=== PATIENT | male | born 2000 | race Caucasian/White ===

== ENCOUNTER 2020-10-02 00:05 | Emergency (ER) | payer BC, SELFPAY ==
[2020-10-02 00:13] VITALS: BP 111/70; PULSE 99; RESP 18; TEMP 36.6; O2SAT 96; BMI 25.1
--- NOTE | 2020-10-02 01:08 | ED_ITS ---
HPI - Psych General: Chief Complaint: Psychiatric Symptoms Stated Complaint: mhe Time Seen by Provider: 10/02/20 00:12 Source: patient Mode of arrival: ambulatory Limitations: no limitations History of Present Illness: HPI Narrative: PAtient reports onset of severe panic attacks today - states has not ate or had intake of PO fluids in 24 hours due to severe anixety and nausea, he reports became scared tonight which prompted his visit to the ED, states thoughts were strong and became overwhelmed and stressed. He states is not able to focus, he reports history of need for psychiatric medication 2 years ago, is currently not taking any medication. He denies suicidal/homicidal ideations plans or thoughts. He reports inability to sleep due to persistent thoughts of events that occurred in the past. He reports cannot turn his mind off. He is requesting admission to the stress unit to help with anxiety. He states he is scared to be alone. He lives here in [place], he lives with his mother and sister. 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 He is not willing to discuss what events occurred in the past, I'm trying to s top thinking about it . complaint: other (severe anxiety) Onset (ago): day(s) (2) Duration: constant History of same: Yes Relieving factors: therapy Exacerbating factors: other (thoughts) Context: significant life stressor Associated psychiatric symptoms: racing thoughts Associated symptoms: Reports racing thoughts; Deny auditory hallucinations, visual hallucinations, depression, homicidal ideation or suicidal ideation Treatments prior to arrival: none Review of Systems General: Reports: 10 or more systems reviewed and unremarkable except in HPI and below Const: Denies: fever(s), chills or diaphoresis Eyes: Denies: blurry vision or eye redness ENMT: Denies: throat pain, dental pain or disequilibrium Card: Reports: palpitations; Denies: chest pain, irregular heart rhythm, swelling of feet/ankles, dyspnea on exertion or orthopnea Resp: Denies: dyspnea, productive cough, non-productive cough, wheezing or chest congestion GI: Denies: abdominal pain, nausea or vomiting : Denies: difficulty urinating, dysuria, urinary hesitancy or hematuria Musc: Reports: joint pain (chronic rt knee pain, cyst ); Denies: neck pain, back pain, muscle cramps or muscle weakness Skin/Breast: Denies: rash, pruritus, erythema, skin tenderness, changing lesions or changes in skin color Neuro: Reports: difficulty communicating thoughts; Denies: headache(s), weakness in extremities, lack of coordination, dizziness, confusion, behavioral changes or Slurred speech present Psych: Reports: anxiety, panic attacks, sleeping less, loss of interest, change in appetite and difficulty concentrating; Denies: depression, visual hallucinations, auditory hallucinations, suicidal i deation or homicidal ideation Joe/Lymph: Denies: easy bruising PFSH ED PFSH: Medical History Anxiety Panic attack Social History (Updated 10/02/20 @ 01:19 by ELVIRA Denny) Household members: other Housing: House Marital status: Single Physical Exam Const: COMMON NORMALS: no acute distress, patient oriented x3, healthy appearing, alert and well nourished GENERAL APPEARANCE: cooperative, comfortable, well kempt, well developed, anxious and well hydrated NUTRITIONAL APPEARANCE: thin ORIENTATION/CONSCIOUSNESS: Yes awake, Yes oriented to person, Yes oriented to place and Yes oriented to time HENMT: COMMON NORMALS: normocephalic, atraumatic, EAC's normal, Normal external nose present and moist oral mucous membranes HEAD & SCALP: normal to inspection, normocephalic and atraumatic FACE & SINUS: normal facial exam and face symmetric NOSE: Normal external nose present EXTERNAL AUDITORY CANAL: EAC's normal MOUTH: Normal oral and palatal mucosa present THROAT: posterior oropharynx normal Eye: COMMON NORMALS: Equal, round and reactive pupils present, EOMs intact bilaterally and conjunctivae normal GENERAL EYE: appearance normal, both eyes and all related structures ALIGNMENT: Yes alignment normal EYELID: eyelids normal CONJUNCTIVA: Yes conjunctivae normal PUPIL: Yes Equal, round and reactive pupils present Neck/C-Spine: COMMON NORMALS: full ROM, no lymphadenopathy and supple GENERAL: Yes normal visual inspection and Yes trachea midline CERVICAL SPINE: Yes cervical ROM normal Lymph: LYMPHATIC: no lymphadenopathy noted Chest: COMMONS NORMALS: normal inspection of the chest and normal palpation of entire chest wall Resp: COMMON NORMALS: normal respiratory effort, No retractions, No use of accessory muscles and clear to auscultation bilaterally EFFORT & INSPECTION: Yes able to speak in complete sentences, No labored and No audible wheezes AUSCULTATION: clear to auscultation bilaterally and no wheezes Cardio: COMMON NORMALS: regular rate, regular rhythm, S1 normal heart sound present, S2 normal heart sound present and Peripheral pulses 2+ throughout RATE: regular rate RHYTHM: regular rhythm HEART SOUNDS: S1 normal heart sound present and S2 normal heart sound present PERIPHERAL PULSES: Peripheral pulses 2+ throughout GI: COMMON NORMALS: Normal to inspection, nondistended, normoactive bowel sounds present, Soft to palpation and non-tender INSPECTION: Yes normal to inspection, No abdominal wall ecchymosis, No abdominal distension and No central obesity PALPATION: Yes Soft to palpation : COMMON NORMALS: Yes no CVA tenderness BLADDER/KIDNEY EXAM: Yes no CVA tenderness Back/Pelvis: COMMON NORMALS: no CVA tenderness, thoracic and lumbar spine normal to inspection, no thoracic nor lumbar tenderness, thoraco-lumbar ROM normal and straight leg raise negative bilaterally Extremity: COMMON NORMALS: normal to inspection and capillary refill normal Neuro: COMMON NORMALS: patient oriented x3 and no focal motor deficits SENSORIUM/ORIENTATION: Yes alert, Yes oriented to person, Yes oriented to place and Yes oriented to time SPEECH: speech normal MOTOR EXAM: 5/5 motor strength present throughout Psych: COMMON NORMALS: mental status grossly normal, cooperative, speech normal, denies hallucinations, denies homicidal ideation and denies suicidal ideation APPEARANCE: Yes grossly normal and Yes well kempt ATTITUDE: Yes calm ACTIVITY/MOTOR BEHAVIOR: Yes appropriate eye contact SPEECH: Yes normal speech MOOD & AFFECT: Yes anxious THOUGHT PROCESS: Circumstantial thought process present ATTENTION/CONCENTRATION: Yes attention grossly intact MEMORY/COGNITION: Yes memory grossly intact INSIGHT: Good insight present (Psych) JUDGEMENT: Good judgement present (Psych) Skin: COMMON NORMALS: no rashes or lesions noted and turgor normal GENERAL SKIN EXAM: no rashes or lesions noted and turgor normal MDM - Psych MDM Narrative: Medical decision making narrative: 20-year-old male patient presents to the emergency department with panic attacks and severe anxiety. He was not suicidal/homicidal nor does he have previous history of psychiatric admission for such. He was prescribed Ativan for anxiety, received 1 L of normal saline as he had not ate or drank in 24 hours due to severe anxiety. He reports Ativan was effective with improving anxiety, request to be admitted to inpatient stress unit -he did not meet criteria for admission as he was not suicidal/homicidal. Plan is to prescribe anxiolytics with SSRI and consult case management for primary care/behavioral health appointment. He agrees with plan and agrees with follow-up. He was advised to return to the emergency department if he developed suicidal/homicidal ideation thoughts or plans. Urine drug screen negative, remaining serology testing without acute abnormalities. Lab Data: Labs: Lab Results 10/02/20 10/02/20 10/02/20 Range/Units 01:16 01:16 01:26 WBC 6.0 (4.0-10.0) 10^3/ uL RBC 5.28 (4.1-5.3) 10^6/u L Hgb 15.5 (11.7-16.6) g/dL Hct 48.3 (42.0-52.0) % MCV 91.5 (80-94) fL MCH 29.4 (28.0-34.0) pg MCHC 32.1 (30.0-36.0) g/dL RDW 13.2 (12.1-15.1) % Plt Count 242 (130-400) 10^3/c mm MPV 10.5 H (7.4-10.4) fL Neut % (Auto) 65.5 % Lymph % (Auto) 26.0 % [place] % (Auto) 7.2 % Eos % (Auto) 0.3 % Baso % (Auto) 0.7 % Neut # (Auto) 3.94 (1.8-7.7) 10^3/u L Lymph # (Auto) 1.6 (0.8-4.8) 10^3/u L [place] # (Auto) 0.4 (0.2-0.9) 10^3/u L Eos # (Auto) 0.0 (0.0-0.8) 10^3/u L Baso # (Auto) 0.0 (0.0-0.1) 10^3/u L Nucleated RBC % (a uto) 0 % Nucleated RBCs # 0.0 /100WBC Sodium (136-145) mmol/L Potassium (3.5-5.1) mmol/L Chloride (98-107) mmol/L Carbon Dioxide (22-29) mmol/L Anion Gap (5-19) BUN (6-20) mg/dL Creatinine (0.7-1.2) mg/dL GFR Calculation (90-130) mL/min Glucose (65-115) mg/dL Calculated Osmolal ity (285-295) mOsm/k g Calcium (8.5-10.5) mg/dL Total Bilirubin (0.15-1.2) mg/dL AST (0-40) U/L ALT (0-41) U/L Alkaline Phosphata se (40-130) IU/L Total Protein (6.6-8.7) g/dL Albumin (3.5-5.2) g/dL Globulin (1.3-4.6) g/dL Lipase (13-60) U/L Urine Color Yellow (Yellow) Urine Appearance Clear (CLEAR) Urine pH 5 (5-7) Ur Specific Gravit y 1.030 (1.005-1.030) Urine Protein Neg (Negative) Urine Glucose (UA) Norm (Normal) Urine Ketones 3+ H (Negative) Urine Blood Neg (Negative) Urine Nitrate Negative (Negative) Urine Bilirubin 1+ H (Negative) Urine Urobilinogen 1 H (Negative) mg/dL Ur Leukocyte [place] Negative (Negative) Salicylates (3-10) mg/dL Urine Opiates Scre en Negative (Negative) ng/mL Acetaminophen (10-30) ug/mL Ur Barbiturates Sc reen Negative (Negative) ng/mL Ur Phencyclidine S crn Negative (Negative) ng/mL Ur Amphetamines Sc reen Negative (Negative) ng/mL U Benzodiazepines Scrn Negative (Negative) ng/mL Urine Cocaine Scre en Negative (Negative) ng/mL U Marijuana (THC) Screen Negative (Negative) ng/mL Ethyl Alcohol (0-10) mg/dL 10/02/ Range/Units 01:26 WBC (4.0-10.0) 10^3/ uL RBC (4.1-5.3) 10^6/u L Hgb (11.7-16.6) g/dL Hct (42.0-52.0) % MCV (80-94) fL MCH (28.0-34.0) pg MCHC (30.0-36.0) g/dL RDW (12.1-15.1) % Plt Count (130-400) 10^3/c mm MPV (7.4-10.4) fL Neut % (Auto) % Lymph % (Auto) % [place] % (Auto) % Eos % (Auto) % Baso % (Auto) % Neut # (Auto) (1.8-7.7) 10^3/u L Lymph # (Auto) (0.8-4.8) 10^3/u L [place] # (Auto) (0.2-0.9) 10^3/u L Eos # (Auto) (0.0-0.8) 10^3/u L Baso # (Auto) (0.0-0.1) 10^3/u L Nucleated RBC % (a uto) % Nucleated RBCs # /100WBC Sodium 140 (136-145) mmol/L Potassium 4.1 (3.5-5.1) mmol/L Chloride 103 (98-107) mmol/L Carbon Dioxide 24 (22-29) mmol/L Anion Gap 17.1 (5-19) BUN 13 (6-20) mg/dL Creatinine 0.7 (0.7-1.2) mg/dL GFR Calculation 141.0 H (90-130) mL/min Glucose 89 (65-115) mg/dL Calculated Osmolal ity 290 (285-295) mOsm/k g Calcium 9.3 (8.5-10.5) mg/dL Total Bilirubin 0.6 (0.15-1.2) mg/dL AST 17 (0-40) U/L ALT 19 (0-41) U/L Alkaline Phosphata se 82 (40-130) IU/L Total Protein 7.5 (6.6-8.7) g/dL Albumin 4.8 (3.5-5.2) g/dL Globulin 2.7 (1.3-4.6) g/dL Lipase 18 (13-60) U/L Urine Color (Yellow) Urine Appearance (CLEAR) Urine pH (5-7) Ur Specific Gravit y (1.005-1.030) Urine Protein (Negative) Urine Glucose (UA) (Normal) Urine Ketones (Negative) Urine Blood (Negative) Urine Nitrate (Negative) Urine Bilirubin (Negative) Urine Urobilinogen (Negative) mg/dL Ur Leukocyte [place] (Negative) Salicylates < 0.3 L (3-10) mg/dL Urine Opiates Scre en (Negative) ng/mL Acetaminophen < 5.0 L (10-30) ug/mL Ur Barbiturates Sc reen (Negative) ng/mL Ur Phencyclidine S crn (Negative) ng/mL Ur Amphetamines Sc reen (Negative) ng/mL U Benzodiazepines Scrn (Negative) ng/mL Urine Cocaine Scre en (Negative) ng/mL U Marijuana (THC) Screen (Negative) ng/mL Ethyl Alcohol < 10 (0-10) mg/dL Discharge Plan Discharge Patient Disposition: Home Clinical Impression: Anxiety, Panic attack Condition: Stable Prescriptions: New hydroxyzine HCl 50 mg tablet 50 mg PO TID PRN (Reason: anxiety) Qty: 14 RF: 0 Zoloft 25 mg tablet 25 mg PO DAILY Qty: 14 RF: 0 Discharge Orders: Discharge ED (Routine); Ordered 10/02/20 Ordered By: Marie Monson Referrals: Kalyan Dubois MD [Primary Care Provider] - Discharge Diet: Usual diet Discharge Activity: Resume usual activity Patient Instructions: Post Traumatic Stress Disorder (ED), Anxiety (ED), Opioid Safety, Panic Attack Activity Restrictions/Additional Instructions: software engineer web services will be contacting you with a follow-up appointment with primary care and/or behavioral health Take medication as prescribed Return to the emergency department if you develop suicidal/homicidal ideation plans or thoughts Coding Level of Care Code ED Collar Tailor for Rosibel Fwlali Exam Comprehensive
[2020-10-02] MEDS: LORazepam 1 mg Tablet PO (01:15)
--- NOTE | 2020-10-02 01:15 | ECG_ITS ---
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 Measurements Intervals [place] Rate: 71 P: 9 KS: 154 QRS: 72 QRSD: 101 T: 59 QT: 369 QTc: 402 Interpretive Statements SINUS RHYTHM No previous ECG available for comparison Electronically Signed On 10-02-2020 12:39:43 UTILITY BILL COLLECTOR by Alivia Dasilva M.D. [email or web address]
[2020-10-02] MEDS: famotidine 20 mg Tablet 40 MG PO (01:16)
[2020-10-02] MEDS: sodium chloride 0.9% 1,000 ML 999 ML IV (01:25)
[2020-10-02 01:34] LABS: Add Urine Microscopic? NO
[2020-10-02 01:34] LABS: Basophils % 0.7 %; Eosinophils % 0.3 %; Hematocrit 48.3 % (42.0-52.0); Hemoglobin 15.5 g/dL (11.7-16.6); Lymphocytes # 1.6 10^3/uL (0.8-4.8); Mean Corpuscular HGB Conc 32.1 g/dL (30.0-36.0); Mean Corpuscular Hemoglobin 29.4 pg (28.0-34.0); Mean Corpuscular Volume 91.5 fL (80-94); Mean Platelet Volume 10.5 fL (7.4-10.4); Monocytes # 0.4 10^3/uL (0.2-0.9); Monocytes % 7.2 %; Neutrophils # 3.94 10^3/uL (1.8-7.7); Neutrophils % 65.5 %; Nucleated Red Blood Cells % 0 %; Platelet Count 242 10^3/cmm (130-400); Red Blood Count 5.28 10^6/uL (4.1-5.3); Red Cell Distribution Width 13.2 % (12.1-15.1)
[2020-10-02 01:46] LABS: Bilirubin Urine 1+ (Negative); Blood Urine Neg (Negative); Glucose Urine UA Norm (Normal); Ketones Urine 3+ (Negative); Leukocyte Esterase Urine Negative (Negative); Nitrate Urine Negative (Negative); Protein Urine Neg (Negative); Urine Appearance Clear (CLEAR); Urine Color Yellow (Yellow); Urobilinogen Urine 1 mg/dL (Negative); pH Urine 5 (5-7)
[2020-10-02 01:52] LABS: Alanine Aminotransferase 19 U/L (0-41); Albumin Level 4.8 g/dL (3.5-5.2); Alkaline Phosphatase 82 IU/L (40-130); Anion Gap 17.1 (5-19); Aspartate Amino Transferase 17 U/L (0-40); Blood Urea Nitrogen 13 mg/dL (6-20); Calcium 9.3 mg/dL (8.5-10.5); Carbon Dioxide 24 mmol/L (22-29); Chloride 103 mmol/L (98-107); Globulin 2.7 g/dL (1.3-4.6); Glucose 89 mg/dL (65-115); Lipase 18 U/L (13-60); Osmolality Calculated 290 mOsm/kg (285-295); Potassium 4.1 mmol/L (3.5-5.1); Sodium 140 mmol/L (136-145); Total Bilirubin 0.6 mg/dL (0.15-1.2); Total Protein 7.5 g/dL (6.6-8.7)
[2020-10-02 01:55] LABS: Amphetamines Screen Urine Negative (Negative); Barbiturates Screen Urine Negative (Negative); Benzodiazepines Screen Urine Negative (Negative); Cocaine Screen Urine Negative (Negative); Opiate Screen Urine Negative (Negative); PCP Screen Urine Negative (Negative); THC Screen Urine Negative (Negative)
[2020-10-02 02:02] LABS: Acetaminophen < 5.0 ug/mL (10-30); Alcohol Level < 10 mg/dL (0-10); Salicylate < 0.3 mg/dL (3-10)
[2020-10-02 02:37] VITALS: BP 107/61; PULSE 78; RESP 14; O2SAT 97
[2020-10-02 03:06] VITALS: BP 104/64; PULSE 95; RESP 17; O2SAT 98
--- NOTE | 2020-10-02 13:52 | DCPLANNER ---
solid waste disposal manager had message to speak with patient about getting established with a primary care physician, and [facility] for panic attacks. solid waste disposal manager spoke with patient and gave him the information to get services started at [facility] and the phone number to [facility] if patient had any question. solid waste disposal manager spoke with patient about getting established with a primary care physician, patient stated that he had a primary care physician and he did not want to switch physicians. solid waste disposal manager offered to make a follow up appointment for patient with physician, patient stated that he would schedule an appointment.
== END 2020-10-02 05:47 | disposition home or self-care (01) ==
PROVIDERS: Emergency Medicine; Emergency Provider Nurse Practitioner Family; PCP Family Medicine
DX: F41.9 Anxiety disorder, unspecified (principal); F41.0 Panic disorder [episodic paroxysmal anxiety]
CPT/HCPCS: 80053; 80306; 80307; 81003; 83690; 85025; 93005; 96360; 99283; J7030